=== PATIENT | male | born 1930 | race Caucasian/White ===

== ENCOUNTER 2017-05-31 15:26 | Emergency (ER) | payer OTHER ==
[~2017-05-31] VITALS: Ht 165.1 cm; Wt 63.5 kg
--- NOTE | ~2017-05-31 | EKG ---
[address] [place] [address] ELECTROCARDIOGRAM REPORT Name: SACHIN CLEMONS Room #: [facility].#: [id number] Admission: Attend Phys: Discharge: Date of : [birth year] Report #: [id number] THIS REPORT FOR: //name// [facility] ED Test Date: 2017-05-31 Test Time: 15:39:25 Pat Name: SACHIN CLEMONS Department: Room: Gender: Gas Engineer: MARY : 1930 Requested By: Spencer Harris Order Number: [id number] MD: Vipin Riley Measurements Intervals Roby Rate: 56 P: 44 RI: 198 QRS: -14 QRSD: 146 T: 61 QT: 437 QTc: 422 Interpretive Statements Sinus rhythm Right bundle branch block Compared to ECG 12/13/2012 08:34:39 Sinus bradycardia no longer present Electronically Signed On 05-31-2017 16:09:54 [employer] by Vipin Riley [email or web address] <ELECTRONICALLY SIGNED> By: Vipin Riley MD, [facility] 05/31/17 1609 [id number] Vipin Riley MD, FACC /EPI
[~2017-05-31 15:26] MED LIST: ADULT LOW DOSE81 MG; B-12 DOTS500 MCG; COZAAR; DOXYCYCLINE 10100 MG PO; FLOMAX0.4 MG PO; GABAPENTIN 100100 MG PO; GLUCOPHAGE XR500 MG; LOSARTAN-HCTZ1 EAC2 PO; NORVASC5 MG PO; OCEAN45 ML NS; PLAVIX 75 MG TA75 M1 PO; PRAVASTATIN SOD20 MG
[2017-05-31 16:13] LABS: ABSOLUTE NEUTROPHILS 8.6 thou/uL (1.4-8.2); BASOPHILS 0.8 % (0.0-2.0); EOSINOPHILS 7.2 % (0.0-3.0); HEMATOCRIT 28.5 % (42.0-52.0); HEMOGLOBIN 9.6 gm/dL (14.0-18.0); LYMPHOCYTES 11.3 % (24.0-44.0); MCH 28.8 pg (26.0-34.0); MCHC 33.8 g/dL (28.0-37.0); MCV 85.2 fL (80.0-100.0); MONOCYTES 5.5 % (1.0-8.0); PLATELET COUNT 304 thou/uL (150-400); POLYS 75.2 % (36.0-66.0); RBC 3.34 mil/uL (4.50-6.00); RDW 16.9 % (10.5-14.5); WBC 11.5 thou/uL (4.0-11.0)
[2017-05-31 16:24] LABS: ANION GAP 12 mmol/L (7-16); BUN 39 mg/dL (7-18); CALCIUM 9.2 mg/dL (8.5-10.1); CHLORIDE 104 mmol/L (98-107); CO2 22 mmol/L (21-32); CREATININE 2.2 mg/dL (0.7-1.3); GLUCOSE 148 mg/dL (74-106); SODIUM 138 mmol/L (136-145)
[2017-05-31 16:33] LABS: ALBUMIN 3.6 g/dL (3.4-5.0); MAGNESIUM 2.2 mg/dL (1.8-2.4); SGOT 14 U/L (15-37); SGPT 16 U/L (30-65); TOTAL BILIRUBIN 0.3 mg/dL (<0.1-1.0); TOTAL PROTEIN 6.9 g/dL (6.4-8.2); TROPONIN-I < 0.04 ng/mL (<0.06)
[2017-05-31 17:11] VITALS: BP 165/58
== END 2017-05-31 17:27 | disposition home or self-care (01) ==
LOC: ER 15:26
PROVIDERS: Emergency Medicine
DX: R55 Syncope and collapse (principal); D64.9 Anemia, unspecified; I12.9 Hypertensive chronic kidney disease with stage 1 through stage 4 chronic kidney disease, or unspecified chronic kidney disease; E11.22 Type 2 diabetes mellitus with diabetic chronic kidney disease; N18.9 Chronic kidney disease, unspecified; E11.42 Type 2 diabetes mellitus with diabetic polyneuropathy; Z87.891 Personal history of nicotine dependence; Z88.0 Allergy status to penicillin; Z86.73 Personal history of transient ischemic attack (TIA), and cerebral infarction without residual deficits